=== PATIENT | female | born 1980 | race Caucasian/White ===

== ENCOUNTER → 2016-11-02 | Outpatient (CLI) | payer MEDICAID | LOC: FIMAGING 07:04 | DX: M51.36 Other intervertebral disc degeneration, lumbar region (principal) ==

== ENCOUNTER → 2017-04-02 | Outpatient (CLI) | payer MEDICAID | LOC: FIMAGING 15:13 | PROVIDERS: ATTEND Family Medicine Sports Medicine | DX: M89.8X8 Other specified disorders of bone, other site (principal); N83.201 Unspecified ovarian cyst, right side ==

== ENCOUNTER 2017-04-10 22:44 | Emergency (ER) | payer MEDICAID ==
[2017-04-10 22:52] VITALS: BP 172/101; PULSE 83; RESP 16; TEMP 98.4; O2SAT 96
[2017-04-10] MEDS ORDERED: PROPARACAINE 0.5% 15 ML OPHT DROP OP ONE (22:56)
[2017-04-10] MEDS ORDERED: FLUORESCEIN SODIUM 1 MG STRIP OP ONE (22:56)
--- NOTE | 2017-04-10 23:11 | EDPHY ---
H & P Time Seen by Provider: 04/10/17 22:55 HPI/ROS: CHIEF COMPLAINT: Left eye discharge, redness x1 week HISTORY OF PRESENT ILLNESS: 36-year-old immunocompetent female with no corrective lens use complaining of 1 week of left eye discharge, crusting, blurry vision. She was seen by her PCP started on oral Keflex and gentamicin drops and notes no improvement in symptoms. Denies pain with extraocular movements. Denies exposure to high speed projectiles. Denies body fluid exposure to her eyes. Denies fever chills. Denies nausea or vomiting. No lesions or vesicles. PHYSICAL EXAM (Prior to examination, patient consented to physical exam, hands were washed and my usual and customary physical exam procedures followed) 1) GENERAL: Well-developed, well-nourished, alert and oriented. Appears to be in no acute distress. 2) HEAD: Normocephalic 3) ENT: nasopharynx oropharynx clear 4) LUNGS: Breathing comfortably. [5) OCULAR EXAM: Visual Acuity: noted from Nurse's notes. Pupils:equal round and reactive to light EOMI Lids: no edema or swelling, upper and lower lids were everted and no foreign bodies were visualized, no areas of increased fluorescein uptake. Skin: no proptosis, no periorbital erythema or swelling, no vesicles, no pain with extraocular movements. No lesions or vesicles. Conjunctivae: Injected with discharge, negative Addi test. No ciliary flush. Cornea: exam with fluorescein shows no areas of increased uptake, no signs of corneal abrasion, ulceration, dendrites Anterior chamber:normal, no hyphema or hypopyon. Tonometry is 19 Smoking Status: Never smoked Constitutional: Initial Vital Signs Temperature (C) 36.9 C 04/10/17 22:46 Heart Rate 83 04/10/17 22:46 Respiratory Rate 16 04/10/17 22:46 Blood Pressure 172/101 H 04/10/17 22:46 O2 Sat (%) 96 04/10/17 22:46 O2 Delivery Mode Room Air Allergies/Adverse Reactions: No Known Allergies Allergy (Unverified 12/27/14 16:24) Home Medications: Medication Instructions Recorded NK [No Known Home Meds] 04/10/17 MDM/Departure - MDM ED Course/Re-evaluation: Care of patient under supervision of secondary supervising physician Dr Crow . Doubt periorbital or orbital cellulitis. Doubt ocular zoster. Doubt acute closed angle glaucoma. Doubt iritis. Recommend close follow up with Ophthalmology. I do not think that imaging studies or emergent ophthalmology consultation indicated. Started on Ocuflox. She feels comfortable with this plan. All questions and concerns addressed by myself. - Depart Disposition: Home, Routine, Self-Care Clinical Impression: Conjunctivitis, left eye Qualifiers: Conjunctivitis type: acute Acute conjunctivitis type: bacterial Qualified Code( s): H10.32 - Unspecified acute conjunctivitis, left eye Condition: Good Instructions: Ofloxacin (Into the eye), Conjunctivitis (ED) Additional Instructions: 2 drops in your eye every 2 hr while awake Referrals: Richie Cole MD [Medical Doctor] - 1 day without fail
[2017-04-10] MEDS ORDERED: OFLOXACIN 0.3% SOLN PREPACK OPHT.BTL TAKEHOME ONE (23:15)
== END 2017-04-10 23:37 | disposition home or self-care (01) ==
DX: H10.32 Unspecified acute conjunctivitis, left eye (principal)